=== PATIENT | female | born 1970 | race African-American/Black ===

== ENCOUNTER 2016-11-30 20:57 | Emergency (ER) | payer OTHER ==
[~2016-11-30] VITALS: Ht 162.6 cm; Wt 59.0 kg
--- NOTE | ~2016-11-30 | EKG ---
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1970 Requested By: Shaquille Lopez Order Number: [id number] MD: Brandon Lake Measurements Intervals [place] Rate: 128 P: 78 MN: 130 QRS: 22 QRSD: 84 T: 44 QT: 316 QTc: 461 Interpretive Statements Sinus tachycardia Probable left atrial enlargement Borderline ST depression, diffuse leads Compared to ECG 11/21/2016 14:52:26 ST (T wave) deviation now present Electronically Signed On 12-01-2016 8:11:05 CDT by Brandon Lake [email or web address] <ELECTRONICALLY SIGNED> By: Brandon Lake MD, [facility] 12/01/16 0811 35 35 Brandon Lake MD, [facility] /EPI
[~2016-11-30 20:57] MED LIST: ATIVAN0.5 MG PO; ELIMITE60 GM TP; HYDROXYZINE HCL25 M2 PO; MEDROL DOSPAK21 TAB PO
[2016-11-30] MEDS ORDERED: B-12500 MCG PO (21:01)
[2016-11-30 21:58] LABS: ABSOLUTE NEUTROPHILS 9.1 thou/uL (1.4-8.2); BASOPHILS 0.7 % (0.0-2.0); HEMATOCRIT 44.1 % (37.0-47.0); HEMOGLOBIN 14.7 gm/dL (12.0-15.0); LYMPHOCYTES 28.7 % (24.0-44.0); MANUAL DIFF NO; MCH 31.2 pg (26.0-34.0); MCHC 33.5 g/dL (28.0-37.0); MCV 93.2 fL (80.0-100.0); MONOCYTES 8.7 % (1.0-8.0); PLATELET COUNT 260 thou/uL (150-400); POLYS 60.9 % (36.0-66.0); RBC 4.73 mil/uL (4.20-5.00); RDW 13.6 % (10.5-14.5); WBC 14.9 thou/uL (4.0-11.0)
[2016-11-30 22:04] LABS: ANION GAP 10 mmol/L (7-16); BUN 6 mg/dL (7-18); CALCIUM 8.8 mg/dL (8.5-10.1); CHLORIDE 102 mmol/L (98-107); CO2 26 mmol/L (21-32); CREATININE 0.8 mg/dL (0.6-1.0); GLUCOSE 130 mg/dL (74-106); SODIUM 138 mmol/L (136-145)
[2016-11-30 22:11] LABS: ALBUMIN 4.1 g/dL (3.4-5.0); ALKALINE PHOSPHATASE 79 U/L (46-116); MAGNESIUM 1.9 mg/dL (1.8-2.4); SGOT 22 U/L (15-37); SGPT 47 U/L (30-65); TOTAL BILIRUBIN 0.8 mg/dL (<0.1-1.0); TOTAL PROTEIN 7.8 g/dL (6.4-8.2); TROPONIN-I < 0.04 ng/mL (<0.04-0.07)
[2016-11-30] MEDS ORDERED: LEVOTHYROXIN0.075 MG PO (23:35)
[2016-12-01 00:21] VITALS: BP 116/86
[2016-12-01] MEDS ORDERED: ATIVAN0.5 MG PO (17:00)
== END 2016-12-01 00:22 | disposition home or self-care (01) ==
LOC: ER 20:57
PROVIDERS: Emergency Medicine
DX: R07.9 Chest pain, unspecified (principal); E03.9 Hypothyroidism, unspecified; R06.02 Shortness of breath; Z88.6 Allergy status to analgesic agent

== ENCOUNTER 2016-12-01 12:24 | Emergency (ER) | payer OTHER ==
[~2016-12-01] VITALS: Ht 167.6 cm; Wt 74.8 kg
--- NOTE | ~2016-12-01 | EKG ---
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 : 1970 Requested By: Grady Armenta Order Number: [id number] MD: Nikolai Herbert Measurements Intervals [place] Rate: 111 P: 70 DE: 126 QRS: 19 QRSD: 84 T: 44 QT: 329 QTc: 447 Interpretive Statements Sinus tachycardia Probable left atrial enlargement Baseline wander in lead(s) V6 Compared to ECG 11/30/2016 21:36:07 ST (T wave) deviation no longer present Electronically Signed On 12-01-2016 16:57:07 CDT by Nikolai Herbert [email or web address] <ELECTRONICALLY SIGNED> By: Nikolai Herbert MD 12/01/16 1657 1241 1241 Nikolai Herbert MD /VIMAL
[~2016-12-01 12:24] MED LIST changes: +B-12500 MCG PO; +LEVOTHYROXIN0.075 MG PO
[2016-12-01 13:03] LABS: BASOPHILS 0.8 % (0.0-2.0); EOSINOPHILS 1.3 % (0.0-3.0); HEMATOCRIT 41.8 % (37.0-47.0); HEMOGLOBIN 14.1 gm/dL (12.0-15.0); LYMPHOCYTES 19.3 % (24.0-44.0); MCH 31.5 pg (26.0-34.0); MCHC 33.8 g/dL (28.0-37.0); MONOCYTES 7.7 % (1.0-8.0); PLATELET COUNT 232 thou/uL (150-400); POLYS 70.9 % (36.0-66.0); RBC 4.49 mil/uL (4.20-5.00); RDW 13.6 % (10.5-14.5); WBC 11.3 thou/uL (4.0-11.0)
[2016-12-01 13:11] LABS: MANUAL DIFF NO
[2016-12-01 13:14] LABS: ANION GAP 7 mmol/L (7-16); BUN 5 mg/dL (7-18); CALCIUM 8.9 mg/dL (8.5-10.1); CHLORIDE 106 mmol/L (98-107); CO2 28 mmol/L (21-32); CREATININE 0.8 mg/dL (0.6-1.0); GLUCOSE 92 mg/dL (74-106); POTASSIUM 4.3 mmol/L (3.5-5.1); SODIUM 141 mmol/L (136-145)
[2016-12-01 13:22] LABS: SGOT 20 U/L (15-37)
[2016-12-01 13:23] LABS: ALBUMIN 3.7 g/dL (3.4-5.0); ALKALINE PHOSPHATASE 75 U/L (46-116); SGPT 44 U/L (30-65); TOTAL BILIRUBIN 0.4 mg/dL (<0.1-1.0); TOTAL PROTEIN 7.1 g/dL (6.4-8.2); TROPONIN-I < 0.04 ng/mL (<0.04-0.07)
[2016-12-01] MEDS ORDERED: ATIVAN0.5 MG PO (17:00)
[2016-12-01 17:37] VITALS: BP 145/80
== END 2016-12-01 17:40 | disposition home or self-care (01) ==
LOC: ER 12:24
PROVIDERS: Physician Assistant
DX: F41.9 Anxiety disorder, unspecified (principal); E03.9 Hypothyroidism, unspecified; R20.9 Unspecified disturbances of skin sensation; Z88.8 Allergy status to other drugs, medicaments and biological substances